=== PATIENT | male | born 1975 | race Caucasian/White ===

== ENCOUNTER 2019-05-26 19:17 | Emergency (ER) | payer BC, OTHER ==
[2019-05-26 19:45] LABS: #Basophils 0.2 thou/uL (0.0-0.2); #Eosinphils 0.2 thou/uL (0.0-0.7); #Lymphocytes 4.9 thou/uL (1.20-3.40); #Monocytes 0.9 thou/uL (0.11-0.59); #Neutrophils 13.5 thou/uL (1.40-6.50); %Basophils 0.9 % (0.0-1.0); %Eosinophils 0.8 % (0.0-10.0); %Lymphocytes 24.8 % (21.0-51.0); %Monocytes 4.7 % (0.0-10.0); %Neutrophils 68.8 % (42.0-75.0); Hemoglobin 18.1 g/dL (14.0-18.0); Mean Corpuscular HGB CONC 31.6 g/dL (32.0-36.0); Mean Corpuscular Hemoglobin 28.9 pg (27.0-31.0); Mean Corpuscular Volume 91.3 fL (78.0-98.0); Mean Platelet Volume 10.6 fL (7.4-10.4); Platelet Count 252 thou/uL (130-400); RBC Distribution Width 14.3 % (11.5-14.5); Red Blood Cell (RBC) Count 6.25 mill/uL (4.70-6.10); White Blood Cell (WBC) Count 19.7 thou/uL (4.8-10.8)
[2019-05-26 19:58] LABS: ALT (SGPT) 16 U/L (8-55); AST (SGOT) 29 U/L (5-34); Albumin 4.3 g/dL (3.5-5.0); Alcohol 135 mg/dL (Less than 10); Alkaline Phosphatase 64 U/L (40-110); Anion Gap 16 mmol/L (10-20); BUN (Urea Nitrogen) 10 mg/dL (8.9-20.6); Bilirubin, Total 0.3 mg/dL (0.2-1.2); CK (CPK) 427 U/L (30-200); Calc. Creatinine Clearance 0 mL/min (70-130); Calcium 8.9 mg/dL (7.8-10.44); Carbon Dioxide 23 mmol/L (22-29); Chloride 109 mmol/L (98-107); Estimated GFR-MDRD 72; Globulin 2.6 g/dL (2.4-3.5); Glucose 92 mg/dL (70-105); Potassium 3.2 mmol/L (3.5-5.1); Protein, Total 6.9 g/dL (6.0-8.3); Sodium 145 mmol/L (136-145)
[2019-05-26] MEDS ORDERED: Ondansetron ODT 4 MG TAB ONE (20:49)
[2019-05-26] MEDS ORDERED: Ondansetron PF 4 MG/2 ML Vial ONE (21:05)
[2019-05-26] MEDS ORDERED: Promethazine HCl 25 MG/ML VIAL ONE (21:35)
--- NOTE | 2019-05-26 22:25 | RAD ---
PORTABLE CHEST: Date: 05-26-2019 FINDINGS: An AP portable film at 1936 shows mildly hyperexpanded lungs. The lungs are clear with no acute infil trate. There is no vascular congestion or edema. No pleural effusions present. The mediastinum appear s normal. IMPRESSION: No acute thoracic finding. POS: HOME
[2019-05-26 22:55] LABS: Amphetamine Not Detected (NotDetected); Barbiturates Screen Not Detected (NotDetected); Benzodiazepine Screen Not Detected (NotDetected); Cocaine Metabolite Screen Not Detected (NotDetected); Methadone Not Detected (NotDetected); Methamphetamine Not Detected (NotDetected); Opiate Screen Not Detected (NotDetected); Oxycodone Screen Not Detected (NotDetected); Phencyclidine (PCP) Not Detected (NotDetected); Tricyclic Screen Not Detected (NotDetected)
[2019-05-26 22:56] LABS: Medtox Control Line Valid? VALID (VALID); THC/Cannabinoid Screen Detected (NotDetected)
== END 2019-05-26 23:20 | disposition home or self-care (01) ==
LOC: BURERS 19:17
DX: I71.4 Abdominal aortic aneurysm, without rupture (principal); E86.0 Dehydration; R07.2 Precordial pain; T50.995A Adverse effect of other drugs, medicaments and biological substances, initial encounter; F17.210 Nicotine dependence, cigarettes, uncomplicated
CPT/HCPCS: 71045; 80053; 80306; 80307; 82550; 84443; 84484; 85025; 93005; 96361; 96374; 96375; J2405; J2550; Q0162

== ENCOUNTER 2020-06-25 12:16 | Emergency (ER) | payer BC ==
--- NOTE | 2020-06-25 12:39 | CT ---
CT HEAD WITHOUT IV CONTRAST COMPARISON: None HISTORY: Stroke alert. Left arm tingling and inability to utilize left arm. Weakness bilateral lower extremit ies. Slurred speech. TECHNIQUE: Axial CT imaging at 5 mm intervals from vertex through skull base without contrast FINDINGS: There is no evidence of an acute infarction, hemorrhage, mass effect, or midline shift. The ventricul ar system is normal in size, shape, and position. Skull base has a normal CT appearance. Visualized paranasal sinuses are clear. Osseous structures appear intact. IMPRESSION: 1. No acute intracranial abnormality demonstrated. 2. Above findings discussed with Dr. Gray in the emergency department on 06/25/2020 at 1235 hours.
[2020-06-25 12:42] LABS: PTT 31.5 sec (22.9-36.1); Prothrombin Time 13.1 sec (12.0-14.7)
[2020-06-25 12:51] LABS: ALT (SGPT) 20 U/L (8-55); AST (SGOT) 21 U/L (5-34); Albumin 4.7 g/dL (3.5-5.0); Alkaline Phosphatase 87 U/L (40-110); Anion Gap 17 mmol/L (10-20); BUN (Urea Nitrogen) 9 mg/dL (8.9-20.6); Bilirubin, Total 1.2 mg/dL (0.2-1.2); Calc. Creatinine Clearance 0 mL/min (70-130); Calcium 9.9 mg/dL (7.8-10.44); Carbon Dioxide 28 mmol/L (22-29); Chloride 99 mmol/L (98-107); Globulin 3.2 g/dL (2.4-3.5); Glucose 104 mg/dL (70-105); Potassium 4.4 mmol/L (3.5-5.1); Protein, Total 7.9 g/dL (6.0-8.3); Sodium 140 mmol/L (136-145)
[2020-06-25 12:59] LABS: #Basophils 0.1 thou/uL (0.0-0.2); #Lymphocytes 1.9 thou/uL (1.20-3.40); #Monocytes 0.6 thou/uL (0.11-0.59); #Neutrophils 7.8 thou/uL (1.40-6.50); %Basophils 0.9 % (0.0-1.0); %Eosinophils 0.4 % (0.0-10.0); %Lymphocytes 17.8 % (21.0-51.0); %Monocytes 5.5 % (0.0-10.0); %Neutrophils 75.4 % (42.0-75.0); Hemoglobin 21.8 g/dL (14.0-18.0); Mean Corpuscular HGB CONC 31.9 g/dL (32.0-36.0); Mean Corpuscular Hemoglobin 30.2 pg (27.0-31.0); Mean Corpuscular Volume 94.5 fL (78.0-98.0); Mean Platelet Volume 9.6 fL (7.4-10.4); Platelet Count 233 thou/uL (130-400); RBC Distribution Width 12.5 % (11.5-14.5); Red Blood Cell (RBC) Count Greater than 7.09 mill/uL (4.70-6.10); White Blood Cell (WBC) Count 10.4 thou/uL (4.8-10.8)
[2020-06-25] MEDS ORDERED: Aspirin Chewable 81 MG TAB ONE (13:03)
--- NOTE | 2020-06-25 13:21 | CT ---
EXAM: CT angiogram head and neck with IV contrast and 3-D reconstructions PROVIDED CLINICAL HISTORY: Stroke alert. Left arm tingling and inability to utilize left arm. Weakness bilateral lower extremiti es. Slurred speech. COMPARISON: None FINDINGS: There is a normal arrangement of the great vessels at the aortic arch which are patent. Portion of th e innominate artery and right subclavian artery are obscured due to dense contrast within subclavian veins and SVC limiting adequate evaluation. The left subclavian artery as well as bilatera l common carotid arteries are patent. The bilateral internal carotid arteries are patent. The right internal carotid artery is tortuous. Th ere are patent and codominant bilateral vertebral arteries. Basilar artery is patent. Bilateral posterior cerebral arteries are patent. There is a type lázaro gin of the right posterior cerebral artery. Bilateral anterior cerebral and middle cerebral arteries are patent. No focal stenosis or branch occl usion is seen. No aneurysm is visualized. Mild emphysematous changes are seen in the visualized upper lung zones. Degenerative changes are seen in the cervical spine. There are scattered periapical lucencies involving maxillary and mandibular teeth suggesting periapic al abscesses. Dental caries are visualized. IMPRESSION: 1. Patent bilateral internal carotid arteries and vertebral arteries. 2. Cameron of [place] and vertebrobasilar system are patent without focal stenosis or branch occlusion. 3. Evidence of dental caries and periapical abscesses involving maxillary and mandibular teeth. 4. Above findings discussed with Dr. Gray in the emergency department on 06/25/2020 at 1317 hours.
[2020-06-25 14:34] LABS: Bilirubin Negative (Negative); Blood, Urine Trace (Negative); Clarity Clear (Clear); Glucose, Urine (Dipstick) Negative (Negative); Ketone, Urine 15 mg/dL (Negative); Leukocyte Negative (Negative); Nitrite Negative (Negative); Protein, Urine (Dipstick) Negative (Neg-Trace); Urobilinogen 0.2 mg/dL (Less than 2); pH, Urine 6.5 (5.0-9.0)
[2020-06-25 14:49] LABS: Amphetamine Not Detected (NotDetected); Barbiturates Screen Not Detected (NotDetected); Benzodiazepine Screen Not Detected (NotDetected); Cocaine Metabolite Screen Not Detected (NotDetected); Medtox Control Line Valid? VALID (VALID); Methadone Not Detected (NotDetected); Methamphetamine Not Detected (NotDetected); Opiate Screen Not Detected (NotDetected); Oxycodone Screen Not Detected (NotDetected); Phencyclidine (PCP) Not Detected (NotDetected); THC/Cannabinoid Screen Detected (NotDetected); Tricyclic Screen Not Detected (NotDetected)
[2020-06-25 15:03] LABS: Bacteria/HPF None Seen HPF (None Seen); RBC/HPF 0-3 HPF (0-3); Squamous Epithelial 0-3 HPF (0-3); WBC/HPF 0-3 HPF (0-3)
[2020-06-25 15:35] LABS: SARS-CoV-2 NAA Rapid Test Not Detected (NotDetected)
--- NOTE | 2020-06-25 18:39 | RAD ---
PORTABLE CHEST: 06/25/20 Comparison is made with a 05/26/19 study. The heart remains normal in size and the lungs are clear. No infiltrate or effusion was seen. There i s no vascular congestion or edema. IMPRESSION: No acute thoracic finding. POS: HOME
== END 2020-06-25 15:24 | disposition home or self-care (01) ==
LOC: BURERS 12:16
DX: G45.9 Transient cerebral ischemic attack, unspecified (principal); D45 Polycythemia vera; I10 Essential (primary) hypertension; F17.210 Nicotine dependence, cigarettes, uncomplicated
CPT/HCPCS: 0240U; 36415; 36416; 70450; 70496; 70498; 71045; 80053; 80306; 81003; 81015; 84484; 85025; 85610; 85730; 93005; 94760